=== PATIENT | male | born 1995 | race African-American/Black ===

== ENCOUNTER 2018-09-07 05:37 | Emergency (ER) | payer MEDICAID ==
[~2018-09-07] VITALS: Ht 175.3 cm; Wt 199.0 kg
[2018-09-07 05:59] VITALS: BP 118/60
== END 2018-09-07 10:47 | disposition left against medical advice (07) ==
LOC: ER 05:37
DX: R68.84 Jaw pain (principal); Z53.21 Procedure and treatment not carried out due to patient leaving prior to being seen by health care provider